=== PATIENT | female | born 1970 | race Caucasian/White ===

== ENCOUNTER 2016-09-05 11:33 | Emergency (ER) | payer OTHER ==
[~2016-09-05] VITALS: Ht 172.7 cm; Wt 55.8 kg
[~2016-09-05 11:33] MED LIST: DIVA500T2 PO; HYDR-548 PO; ONDA4TAB8 SL; PHEN100C4 PO; PHEN30TA40 PO
[2016-09-05 12:02] LABS: BASOPHILS # (AUTO) 0.1 /CMM (0.0-0.2); BASOPHILS % (AUTO) 1.8 % (0.0-2.0); DIFF TOTAL % 100 %; EOSINOPHILS % (AUTO) 0.6 % (0.0-6.0); HEMATOCRIT 43 % (33-45); HEMOGLOBIN 14.4 g/dL (11.5-14.8); LYMPHOCYTES # (AUTO) 0.9 /CMM (0.8-4.8); LYMPHOCYTES % (AUTO) 19.1 % (20.0-44.0); MEAN CORPUSCULAR HEMOGLOBIN 29 PG (26.0-33.0); MEAN CORPUSCULAR HGB CONC 33 g/dl (31.0-36.0); MEAN CORPUSCULAR VOLUME 87 fL (82-100); MONOCYTES # (AUTO) 0.3 /CMM (0.1-1.30); MONOCYTES % (AUTO) 7.1 % (2.0-12.0); NEUTROPHILS # (AUTO) 3.5 /CMM (1.8-8.9); NEUTROPHILS % (AUTO) 71.4 % (43.0-81.0); PLATELET COUNT (AUTO) 226 /CMM (150-450); RED BLOOD CELL COUNT(AUTO) 5.01 MIL/uL (4.0-5.2); WHITE BLOOD COUNT (AUTO) 4.8 K/uL (4.3-11.0)
[2016-09-05] MEDS ORDERED: ONDANSETRON 4 MG TAB.RAPDIS ONE (12:14)
[2016-09-05] MEDS ORDERED: HYDROMORPHONE 1 MG/1 ML DISP.SYRIN ONE (12:15)
[2016-09-05 12:21] LABS: CREATININE 0.6 mg/dL (0.6-1.3); POTASSIUM 3.3 mmol/L (3.5-5.1)
[2016-09-05] MEDS ORDERED: HYDROMORPHONE 1 MG/1 ML DISP.SYRIN IM ONE (12:30)
[2016-09-05] MEDS ORDERED: ONDANSETRON 4 MG TAB.RAPDIS SL ONE (12:30)
[2016-09-05] MEDS ORDERED: PHENYTOIN EXTENDED RELEASE 100 MG CAPSULE PO ONE ×2 (12:51→13:00)
[2016-09-05] MEDS ORDERED: DIVALPROEX SODIUM 500 MG TABLET.DR PO ONE ×2 (12:51→13:00)
[2016-09-05] MEDS ORDERED: HYDR8TAB18 PO (12:56)
[2016-09-05] MEDS ORDERED: CALC-7 PO (12:56)
[2016-09-05] MEDS ORDERED: PANT40TA4 PO (12:56)
[2016-09-05] MEDS ORDERED: CLON0.2T PO (12:56)
[2016-09-05] MEDS ORDERED: PHEN60TA11 PO (12:56)
[2016-09-05] MEDS ORDERED: DOCU-270 PO (12:56)
[2016-09-05] MEDS ORDERED: ONDA8TAB9 PO (12:56)
[2016-09-05] MEDS ORDERED: CYCL-343 PO (12:56)
[2016-09-05] MEDS ORDERED: LACT10SO7 PO (12:56)
[2016-09-05] MEDS ORDERED: DOXY100C41 PO (12:56)
[2016-09-05 14:43] VITALS: BP 135/91
== END 2016-09-05 14:44 | disposition left against medical advice (07) ==
LOC: ER 11:36
DX: R56.9 Unspecified convulsions (principal); F17.210 Nicotine dependence, cigarettes, uncomplicated; Z88.0 Allergy status to penicillin; Z88.6 Allergy status to analgesic agent; Z88.5 Allergy status to narcotic agent; Z91.02 Food additives allergy status
CPT/HCPCS: 36415; 80048-TC; 80164-TC; 80184-TC; 80185-TC; 85025-TC; A4606; J1170; Q0162; Z7610

== ENCOUNTER 2018-08-29 14:54 | Emergency (ER) | payer OTHER ==
[~2018-08-29] VITALS: Ht 172.7 cm; Wt 55.3 kg
[~2018-08-29 14:54] MED LIST changes: +BACL10TA PO; +CALC-7 PO; +CHLO25TA2 PO; +CYCL10TA9 PO; +DOCU-270 PO; -HYDR-548 PO; +LACT10SO7 PO; -ONDA4TAB8 SL; +PANT40TA4 PO; -PHEN100C4 PO; -PHEN30TA40 PO; +PHEN64.8 PO; +QUET100T PO
[2018-08-29] MEDS ORDERED: ONDANSETRON HCL/PF 4 MG/2 ML VIAL ONE (15:24)
[2018-08-29] MEDS ORDERED: HYDROMORPHONE 1 MG/1 ML DISP.SYRIN ONE (15:24)
[2018-08-29] MEDS ORDERED: PHEN60TA11 PO (15:28)
[2018-08-29] MEDS ORDERED: SENN-168 PO (15:28)
[2018-08-29] MEDS ORDERED: HYDR4TAB57 PO (15:28)
[2018-08-29] MEDS ORDERED: ONDA8TAB6 PO (15:28)
[2018-08-29] MEDS ORDERED: LORA1TAB PO (15:28)
[2018-08-29] MEDS ORDERED: HYDROMORPHONE INJ 2 MG/ML DISP.SYRIN IV ONE (15:30)
[2018-08-29] MEDS ORDERED: ONDANSETRON HCL/PF 4 MG/2 ML VIAL IVP ONE (15:30)
[2018-08-29] MEDS ORDERED: IV NS 0.9% 1,000 ML BAG IV ONE (15:30)
[2018-08-29 15:38] LABS: BASOPHILS % (AUTO) 0.4 % (0.0-2.0); EOSINOPHILS % (AUTO) 1.3 % (0.0-6.0); HEMATOCRIT 38 % (33-45); LYMPHOCYTES # (AUTO) 1.9 /CMM (0.8-4.8); LYMPHOCYTES % (AUTO) 30.2 % (20.0-44.0); MEAN CORPUSCULAR HGB CONC 34 g/dl (31.0-36.0); MEAN CORPUSCULAR VOLUME 88 fL (82-100); MONOCYTES # (AUTO) 0.4 /CMM (0.1-1.30); MONOCYTES % (AUTO) 6.9 % (2.0-12.0); NEUTROPHILS # (AUTO) 3.8 /CMM (1.8-8.9); NEUTROPHILS % (AUTO) 61.2 % (43.0-81.0); PLATELET COUNT (AUTO) 230 /CMM (150-450); RED BLOOD CELL COUNT(AUTO) 4.35 MIL/uL (4.0-5.2); WHITE BLOOD COUNT (AUTO) 6.2 K/uL (4.3-11.0)
[2018-08-29 15:48] LABS: CALCIUM, SERUM 9.3 mg/dL (8.5-10.1); CREATININE 0.6 mg/dL (0.6-1.3); POTASSIUM 4.2 mmol/L (3.5-5.1)
[2018-08-29 15:48] LABS: APPEARANCE,URINE Clear (CLEAR); BILIRUBIN,URINE Negative (NEGATIVE); BLOOD, URINE Trace-intact Ery/uL (NEGATIVE); COLOR,URINE Yellow (YELLOW); KETONES,URINE Negative (NEGATIVE); LEUKOCYTE ESTERASE ,URINE Negative (NEGATIVE); NITRITE, URINE Negative (NEGATIVE); PH,URINE 7.5 (5.0-8.0); PROTEIN,URINE Negative (NEGATIVE); UGLUCOSE Negative (NEGATIVE); UROBILINOGEN,URINE 0.2 EU/dL (0.2)
--- NOTE | 2018-08-29 15:48 | NUR ---
PT TO RADIOLOGY FOR LUMBAR CT SCAN VIA [facility].
[2018-08-29 15:51] LABS: BACTERIA,URINE Rare /HPF (None Seen); RBC,URINE 0-2 /HPF (0-2); SQUAMOUS EPITHELIAL CELL,UR Few /HPF (None Seen); WBC,URINE 0-2 /HPF (0-3)
[2018-08-29 15:54] LABS: ALBUMIN 3.4 g/dL (3.4-5.0); BILIRUBIN,TOTAL 0.1 mg/dL (0.2-1.0); TOTAL PROTEIN, SERUM 7.1 g/dL (6.4-8.2)
--- NOTE | 2018-08-29 15:54 | NUR ---
URINE COLLECTED AND SENT TO LAB.
--- NOTE | 2018-08-29 16:08 | NUR ---
PATIENT CAME BACK FROM CT.
[2018-08-29] MEDS ORDERED: HYDROMORPHONE HCL 2 MG TABLET ONE (16:51)
[2018-08-29] MEDS ORDERED: HYDROMORPHONE HCL 2 MG TABLET PO PRN (17:00)
[2018-08-29 17:42] VITALS: BP 116/81
--- NOTE | 2018-08-29 17:43 | NUR ---
Patient discharged to home in stable condition. Written and verbal after care instructions given. Patient verbalizes understanding of instruction.IV removed. Catheter intact and site benign. Pressure and 4x4 applied to site. No bleeding noted.
== END 2018-08-29 17:42 | disposition home or self-care (01) ==
LOC: ER 14:58
DX: S30.0XXA Contusion of lower back and pelvis, initial encounter (principal); G89.29 Other chronic pain; R11.2 Nausea with vomiting, unspecified; F11.20 Opioid dependence, uncomplicated; M54.5 Low back pain; G82.20 Paraplegia, unspecified; G40.909 Epilepsy, unspecified, not intractable, without status epilepticus; I10 Essential (primary) hypertension; Z85.42 Personal history of malignant neoplasm of other parts of uterus; Z85.841 Personal history of malignant neoplasm of brain; Z90.710 Acquired absence of both cervix and uterus; Z98.890 Other specified postprocedural states; W18.39XA Other fall on same level, initial encounter; Y93.89 Activity, other specified; Y92.89 Other specified places as the place of occurrence of the external cause; Y99.8 Other external cause status
CPT/HCPCS: 36415; 72131-TC; 80048-TC; 80076-TC; 81000-TC; 83690-TC; 85025-TC; J1170; J2405; J7030

== ENCOUNTER 2019-02-14 06:42 | Emergency (ER) | payer OTHER ==
[~2019-02-14] VITALS: Ht 165.1 cm; Wt 57.6 kg
[~2019-02-14 06:42] MED LIST changes: -CYCL10TA9 PO; +HYDR4TAB57 PO; +LORA1TAB PO; +ONDA8TAB6 PO; +PHEN60TA11 PO; -PHEN64.8 PO; +SENN-168 PO
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
[2019-02-14] MEDS ORDERED: HYDROMORPHONE 1 MG/1 ML DISP.SYRIN ONE (07:21)
[2019-02-14] MEDS ORDERED: HYDROMORPHONE INJ 0.5 MG/0.5 ML SYRINGE IM ONE (07:30)
--- NOTE | 2019-02-14 07:33 | NUR ---
PT TO RADIOLOGY FOR C SPINE, THORACIC AND LUMBAR CT SCAN VIA [facility].
--- NOTE | 2019-02-14 08:30 | NUR ---
PT STATS UNRELIEVED W/ PAIN SHOT EARLIER. ERMD AWARE.
--- NOTE | 2019-02-14 09:11 | NUR ---
Patient discharged to home in stable condition. Written and verbal after care instructions given. Patient verbalizes understanding of instruction.
[2019-02-14 09:12] VITALS: BP 94/51
== END 2019-02-14 09:13 | disposition home or self-care (01) ==
LOC: ER 06:44
DX: M54.2 Cervicalgia (principal); M54.5 Low back pain; G89.29 Other chronic pain; G82.20 Paraplegia, unspecified; G40.909 Epilepsy, unspecified, not intractable, without status epilepticus; I10 Essential (primary) hypertension; F17.200 Nicotine dependence, unspecified, uncomplicated; Z90.710 Acquired absence of both cervix and uterus; Z85.42 Personal history of malignant neoplasm of other parts of uterus; Z85.841 Personal history of malignant neoplasm of brain; Z98.890 Other specified postprocedural states; Z88.0 Allergy status to penicillin; Z88.6 Allergy status to analgesic agent; Z88.5 Allergy status to narcotic agent; Z91.018 Allergy to other foods; W18.30XA Fall on same level, unspecified, initial encounter; Y93.89 Activity, other specified; Y92.89 Other specified places as the place of occurrence of the external cause; Y99.8 Other external cause status
CPT/HCPCS: 72125; 72128; 72131; 96372; 99284; J1170; J7030